=== PATIENT | male | born 1945 | race Caucasian/White ===

== ENCOUNTER 2023-08-27 09:05 | Outpatient (CLI) | payer MEDICARE, SELFPAY | END 2023-08-27 09:06 | disposition home or self-care (01) | LOC: WOUND 09:10 | PROVIDERS: PCP Student in an Organized Health Care Education/Training Program; Visit Provider Physician Assistant | DX: T21.34XA Burn of third degree of lower back, initial encounter (principal); T21.32XA Burn of third degree of abdominal wall, initial encounter; T31.0 Burns involving less than 10% of body surface; X19.XXXA Contact with other heat and hot substances, initial encounter | CPT/HCPCS: 97597; 97598; G0463 ==

== ENCOUNTER 2023-09-03 14:28 | Outpatient (CLI) | payer MEDICARE, SELFPAY | END 2023-09-03 14:29 | disposition home or self-care (01) | LOC: WOUND 14:28 | PROVIDERS: PCP Student in an Organized Health Care Education/Training Program; Visit Provider Nurse Practitioner Family | DX: T21.34XA Burn of third degree of lower back, initial encounter (principal); T21.32XA Burn of third degree of abdominal wall, initial encounter | CPT/HCPCS: G0463 ==

== ENCOUNTER 2023-09-10 13:27 | Outpatient (CLI) | payer MEDICARE, SELFPAY | END 2023-09-10 13:28 | disposition home or self-care (01) | PROVIDERS: PCP Student in an Organized Health Care Education/Training Program; Visit Provider Nurse Practitioner Family | DX: T21.32XA Burn of third degree of abdominal wall, initial encounter (principal); T21.34XA Burn of third degree of lower back, initial encounter; B02.8 Zoster with other complications | CPT/HCPCS: G0463 ==

== ENCOUNTER 2023-10-08 10:10 | Outpatient (CLI) | payer MEDICARE, SELFPAY | END 2023-10-08 10:11 | disposition home or self-care (01) | LOC: INJ CL 10:11 | PROVIDERS: PCP Student in an Organized Health Care Education/Training Program; Visit Provider Family Medicine | DX: M54.16 Radiculopathy, lumbar region (principal); M51.36 Other intervertebral disc degeneration, lumbar region | CPT/HCPCS: 62323; J0702; Q9966 ==